=== PATIENT | male | born 1985 | race African-American/Black ===

== ENCOUNTER → 2016-09-16 | Outpatient (CLI) | payer OTHER ==
--- NOTE | 2016-09-16 15:11 | KCIC ---
PROCEDURE Lumbar spine radiographs HISTORY Low back pain for 1 month, no known injury COMPARISON None FINDINGS Five views of the lumbar spine are submitted. Lumbar vertebral body stature and AP alignment are maintained. Intervertebral disc spaces are adequate. No acute osseous abnormality is identified by radiographs. Calcifications in the pelvis bilaterally are probably due to phleboliths. IMPRESSION No significant osseous abnormality is identified by radiographs. Electronically signed by: Chevy Quinn MD (Sep 16, 2016 15:10:26)
--- NOTE | 2016-09-16 15:31 | KCIC ---
PROCEDURE Nonvascular left extremity ultrasound HISTORY Subcutaneous mass COMPARISON None FINDINGS Multiple sonographic images directed toward the site of concern labeled as the anterior biceps region are submitted. There is oblong fairly homogeneous mass in this region on the order of 2.5 by 3.3 x 1.6 centimeters in size. There is mild internal vascularity on color Doppler imaging. IMPRESSION 1. There is a fairly homogeneous mass at the site of concern labeled as the left anterior biceps region. This may be a lipoma although there is some internal vascularity on color Doppler imaging, could be more definitively characterized with MRI as per clinical indication. Electronically signed by: Chevy Quinn MD (Sep 16, 2016 15:29:45)
== END | disposition home or self-care (01) ==
LOC: KCIC US 13:51
PROVIDERS: ATTEND Physician Assistant
DX: M54.5 Low back pain (principal); R22.42 Localized swelling, mass and lump, left lower limb
CPT/HCPCS: 72110; 76881

== ENCOUNTER 2016-10-02 06:56 | Day surgery (SDC) | payer OTHER ==
[~2016-10-02] VITALS: Ht 165.1 cm; Wt 87.1 kg
[2016-10-02] MEDS ORDERED: HYDROMORPHONE 2 MG/ML VIAL. IV PRN (07:00)
[2016-10-02] MEDS ORDERED: PROCHLORPERAZINE 10 MG/2 ML VIAL. IV PRN (07:00)
[2016-10-02] MEDS ORDERED: MORPHINE SULFATE 2 MG/ML DISP.SYRIN. IV PRN (07:00)
[2016-10-02] MEDS ORDERED: FENTANYL PF 100 MCG/2 ML VIAL. IV PRN ×2 (07:00)
[2016-10-02] MEDS ORDERED: IV RINGERS,LACTATED 1000ML 1,000 ML IV SCH ×2 (07:00→07:45)
[2016-10-02] MEDS ORDERED: LIDOCAINE 1% 1 ML SYRINGE. ID PRN (07:00)
[2016-10-02] MEDS ORDERED: BUPIVAC MPF-EPI 0.5%-1:200000 30 ML VIAL. ONE (07:09)
[2016-10-02] MEDS ORDERED: LIDOCAINE 2% 100 MG/5 ML SYRINGE. ONE (08:11)
[2016-10-02] MEDS ORDERED: ONDANSETRON PF 4 MG/2 ML VIAL. ONE (08:11)
[2016-10-02] MEDS ORDERED: PROPOFOL 20 ML IV ONE (08:11)
[2016-10-02] MEDS ORDERED: DEXAMETHASONE SOD PHOS 20 MG/5 ML VIAL. ONE (08:11)
[2016-10-02] MEDS ORDERED: MIDAZOLAM HCL/PF 2 MG/2 ML VIAL. ONE (08:13)
[2016-10-02] MEDS ORDERED: FENTANYL PF 100 MCG/2 ML VIAL. ONE (08:13)
[2016-10-02] MEDS ORDERED: SEVOFLURANE 31 TO 60 MINUTES. IH ONE (09:35)
[2016-10-02] MEDS ORDERED: SEVOFLURANE 61 TO 120 MINUTES. IH ONE (09:35)
[2016-10-02] MEDS ORDERED: HYDR-971 PO (10:01)
--- NOTE | 2016-10-02 10:04 | PDOC ---
BRIEF OPERATIVE NOTE Pre-Op Diagnosis #[id number] left upper arm lipoma excision of LUE 3 cm lipoma k jessica gen ebl 5 ivf [address] well to rr stable. JUJU VOGT MD Oct 02, 2016 10:04
[2016-10-02 10:25] VITALS: BP 104/74
[2016-10-02] MEDS ORDERED: HYDROCODONE/APAP 5/325MG TABLET. PO ONE (10:30)
--- NOTE | 2016-10-02 14:46 | OP ---
DATE OF SURGERY: 10/02/2016 PREOPERATIVE DIAGNOSIS: Left upper extremity lipoma. POSTOPERATIVE DIAGNOSIS: Left upper extremity lipoma. PROCEDURE: Excision of a 3-cm left upper extremity lipoma. SURGEON: Juju Vogt MD. ANESTHESIA: General. ESTIMATED BLOOD LOSS: 5 mL. IV FLUIDS: 800 mL. INDICATIONS: The patient is a 30-year-old male who presents with a symptomatic left upper arm lipoma that he would like to have excised. DESCRIPTION OF PROCEDURE: After informed consent was obtained, the patient was taken to the Operating Room and placed in supine position. After adequate induction of general anesthesia, he was prepped and draped in the usual sterile fashion. An incision was made along the border of his tattoo overlying the lipoma, and this was extended through the subcutaneous tissue with cautery. The lipoma was encountered, and it was able to be dissected from the surrounding tissue with cautery and then with some pressure on the incision and surrounding tissues. The lipoma was delivered into the field intact. It was measured, and it measured 3 cm. The wound was then irrigated. It was hemostatic. It was closed in layers. The deep layer was closed with interrupted 3-0 Vicryl. The dermal and subdermal layer was closed with interrupted 3-0 Vicryl, and the skin was closed with 4-0 Monocryl in subcuticular fashion. Sterile dressings were placed which consisted of skin effects, 0.5 inch Steri-Strips, and then a sterile bandage on top of that. He tolerated the procedure well. There were no apparent complications. He was then transferred in stable condition to the Recovery Room. JUJU VOGT MD DR: TRIXIE/erin JOB#: [id number] / [id number] JUJU Roque
--- NOTE | 2016-10-03 13:51 | PATHOLOGY ---
PATHOLOGY REPORT * * * * * * * * FINAL DIAGNOSIS: Soft tissue, "left upper arm lipoma," excision: - Lipoma. (SANDRAM:; d/t: 10/03/16) REPORT ELECTRONICALLY SIGNED BY: Marylou Burgess M.D. DATE/TIME: 10/03/2016 13:50 * * * * * * * * GROSS PATHOLOGY: Received in formalin labeled "Steven Foote, left upper arm lipoma," is a segment of lobulated fibroadipose tissue measuring 3.2 x 3.1 x 2.2 cm in maximum dimensions. Sectioning reveals homogeneous, bright yellow cut surfaces. Slate Roofer tissue is submitted in cassette A1. (CAA; 10/02/2016) INITIAL CPT CODE(S): A; 99541 Professional services [place] [place] [address] Technical services performed by [facility] at [address] [place] [address]. SPECIMEN(S) RECEIVED: A.Left upper arm lipoma CLINICAL HISTORY: Left upper arm lipoma PATIENT: STEVEN FOOTE /AGE: 712/14/1985 (Age: 30) PATIENT #: [id number] ALT CASE #: SPECIMEN COLLECTION DATE: 10/02/2016 SPECIMEN RECEIVED DATE: 10/02/2016 [facility] - [address] [place] [address] - PHONE: [phone] * * * END OF REPORT * * *
== END 2016-10-02 11:04 | disposition home or self-care (01) ==
LOC: SURG 06:56
PROVIDERS: ATTEND Surgery
DX: D17.22 Benign lipomatous neoplasm of skin and subcutaneous tissue of left arm (principal); E78.00 Pure hypercholesterolemia, unspecified; Z72.89 Other problems related to lifestyle
CPT/HCPCS: 11403; 12032; J1100; J1956; J2250; J2405; J2704; J3010; J3490; 88304

== ENCOUNTER 2019-05-28 15:09 | Emergency (ER) | payer SELFPAY ==
[~2019-05-28] VITALS: Ht 165.1 cm; Wt 87.5 kg
[~2019-05-28 15:09] MED LIST: HYDR-3164 PO
[2019-05-28] MEDS ORDERED: ORPHENADRINE CITRATE 60 MG/2 ML VIAL. IV ONE (15:45)
[2019-05-28] MEDS ORDERED: IV NORMAL SALINE 1000ML BAG 1,000 ML IV ONE (15:45)
[2019-05-28] MEDS ORDERED: diphenhydrAMINE 50 MG/ML VIAL IVP ONE (15:45)
[2019-05-28] MEDS ORDERED: METOCLOPRAMIDE HCL 10 MG/2 ML VIAL. IVP ONE (15:45)
[2019-05-28] MEDS ORDERED: BUTORPHANOL 2 MG/ML VIAL. IV ONE (15:45)
[2019-05-28] MEDS ORDERED: SUMAtriptan SUCC 6 MG/0.5 ML VIAL. SQ ONE (15:45)
--- NOTE | 2019-05-28 16:23 | RAD ---
CT HEAD WITHOUT CONTRAST 05/28/2019 3:37 PM Indication: Headache Comparison: None Procedure: Multidetector CT imaging of the head was performed without the administration of contrast. Findings: There is no evidence of acute intracranial hemorrhage. There is no evidence of acute territorial infarction. Please note that CT is limited for evaluation of acute ischemia. No mass effect or midline shift is identified . The ventricles and basilar cisterns have an appropriate appearance. No abnormal extra-axial fluid collections are seen. No acute osseous changes are identified. Impression: No evidence of acute intracranial abnormality CT DOSING PQRS STATEMENT: One or more of the following individualized dose reduction techniques were utilized for this examination: 1. Automated exposure control 2. Adjustment of the mA and/or kV according to patient size 3. Use of iterative reconstruction technique Electronically signed by: Lauri Woods MD (05/28/2019 4:20 PM) [facility]
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
[2019-05-28] MEDS ORDERED: ORPH100T PO (17:24)
[2019-05-28] MEDS ORDERED: HYDR-3164 PO (17:24)
[2019-05-28 17:30] VITALS: BP 118/77
== END 2019-05-28 17:35 | disposition home or self-care (01) ==
LOC: ER 15:09
DX: M54.5 Low back pain (principal); R51 Headache; R11.0 Nausea; Z98.890 Other specified postprocedural states; Z79.899 Other long term (current) drug therapy; Z88.0 Allergy status to penicillin
CPT/HCPCS: 70450; 96372; 96374; 96375; 99284; J1200; J2360; J2765; J3030; J7030